=== PATIENT | male | born 2000 | race Caucasian/White ===

== ENCOUNTER 2018-06-02 10:23 | Emergency (ER) | payer OTHER, SELFPAY ==
[2018-06-02 12:26] LABS: Absolute Lymphocytes (CBC) 2.2 K/uL (0.7-4.9); Absolute Monocytes 0.4 K/uL (0.1-1.3); Absolute Neutrophil 3.4 K/uL (1.8-8.0); Basophils % 0.5 % (0-1.3); Eosinophils % 3.4 % (0-4.4); Hematocrit 45.1 % (39.6-49.0); Lymphocytes % 35.5 % (15.3-44.8); MCV 94.3 fL (80-100); MPV 7.7 fL (7.6-11.3); Monocytes % 6.7 % (3.3-12.3); RBC Red Blood Cell Count 4.79 M/uL (4.33-5.43)
--- NOTE | 2018-06-02 12:26 | EDPHYS ---
Physician Documentation [facility] Name: Blaine Holbrook Age: 18 yrs Sex: Male : 2000 Arrival Date: 06/02/2018 Time: 10:29 Bed 4 Private MD: ED Physician Sean Maldonado HPI: 06/02 12:18 This 18 yrs old Male presents to ER via EMS with complaints of Heat Exposure. 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 He was noted to be hypertensive but otherwise stable and was sent to the ED for evaluation. Historical: - Allergies: 10:32 No Known Allergies; aj - Home Meds: 10:32 None [Active]; aj - PMHx: 10:32 None; aj - PSHx: 10:32 None; aj - Immunization history:: Adult Immunizations up to date. - Social history:: Smoking status: Patient/guardian denies using tobacco. - Ebola Screening: : Patient negative for fever greater than or equal to 101.5 degrees Fahrenheit, and additional compatible Ebola Virus Disease symptoms Patient denies exposure to infectious person Patient denies travel to an Ebola-affected area in the 21 days before illness onset No symptoms or risks identified at this time. ROS: 12:18 Constitutional: Negative for fever, chills, and weight loss, Eyes: Negative for injury, kdr pain, redness, and discharge, ENT: Negative for injury, pain, and discharge, Neck: Negative for injury, pain, and swelling, Cardiovascular: Negative for chest pain, palpitations, and edema, Respiratory: Negative for shortness of breath, cough, wheezing, and pleuritic chest pain, Abdomen/GI: Negative for abdominal pain, nausea, vomiting, diarrhea, and constipation, Back: Negative for injury and pain, : Negative for injury, bleeding, discharge, and swelling, MS/Extremity: Negative for injury and deformity, Skin: Negative for injury, rash, and discoloration, Psych: Negative for depression, anxiety, suicide ideation, homicidal ideation, and hallucinations, Allergy/Immunology: Negative for hives, rash, and allergies, Endocrine: Negative for neck swelling, polydipsia, polyuria, polyphagia, and marked weight changes, Hematologic/Lymphatic: Negative for swollen nodes, abnormal bleeding, and unusual bruising. 12:18 Neuro: Positive for dizziness, weakness. Exam: 12:18 Constitutional: This is a well developed, well nourished patient who is awake, alert, kdr and in no acute distress. Head/Face: Normocephalic, atraumatic. Eyes: Pupils equal round and reactive to light, extra-ocular motions intact. Lids and lashes normal. Conjunctiva and sclera are non-icteric and not injected. Cornea within normal limits. Periorbital areas with no swelling, redness, or edema. Neck: Trachea midline, no thyromegaly or masses palpated, and no cervical lymphadenopathy. Supple, full range of motion without nuchal rigidity, or vertebral point tenderness. No Meningismus. Chest/axilla: Normal chest wall appearance and motion. Nontender with no deformity. No lesions are appreciated. Cardiovascular: Regular rate and rhythm with a normal S1 and S2. No gallops, murmurs, or rubs. Normal PMI, no JVD. No pulse deficits. Respiratory: Lungs have equal breath sounds bilaterally, clear to auscultation and percussion. No rales, rhonchi or wheezes noted. No increased work of breathing, no retractions or nasal flaring. Abdomen/GI: Soft, non-tender, with normal bowel sounds. No distension or tympany. No guarding or rebound. No evidence of tenderness throughout. Back: No spinal tenderness. No costovertebral tenderness. Full range of motion. Skin: Warm, dry with normal turgor. Normal color with no rashes, no lesions, and no evidence of cellulitis. MS/ Extremity: Pulses equal, no cyanosis. Neurovascular intact. Full, normal range of motion. Neuro: Awake and alert, GCS 15, oriented to person, place, time, and situation. Cranial nerves II-XII grossly intact. Motor strength 5/5 in all extremities. Sensory grossly intact. Cerebellar exam normal. Normal gait. Psych: Awake, alert, with orientation to person, place and time. Behavior, mood, and affect are within normal limits. Vital Signs: 10:32 BP 147 / 100; Pulse 81; Resp 20; Temp 98.4; Pulse Ox 99% on R/A; Weight 99.79 kg; aj Height 6 ft. 1 in. (185.42 cm); 10:51 BP 146 / 88; Pulse 72; Resp 25 S; Pulse Ox 98% on R/A; ae1 13:13 BP 134 / 94; Pulse 64; Resp 18; Pulse Ox 100% on R/A; ae1 10:32 Body Mass Index 29.03 (99.79 kg, 185.42 cm) sandra MDM: 12:18 Data reviewed: vital signs, nurses notes, lab test result(s), radiologic studies. kdr Counseling: I had a detailed discussion with the patient and/or guardian regarding: the historical points, exam findings, and any diagnostic results supporting the discharge/admit diagnosis, lab results, radiology results, the need for outpatient follow up. 12:26 Patient medically screened. [facility] 06/02 10:50 Order name: CBC with Diff; Complete Time: 12:44 [facility] 06/02 10:50 Order name: Chem 7; Complete Time: 12:44 [facility] 06/02 11:35 Order name: EKG Electrocardiogram; Complete Time: 11:56 [facility] 06/02 12:12 Order name: Urine Dipstick--Ancillary (enter results) 06/02 12:12 Order name: Urine Dipstick-Ancillary [facility] 06/02 11:55 Order name: EKG - Nurse/Tech; Complete Time: 11:55 ae1 Administered Medications: 13:11 Drug: Potassium Chloride 20 mEq Route: PO; ae1 13:21 Follow up: Response: Medication administered at discharge. ae1 Disposition: 06/02/18 12:26 Discharged to Home. Impression: Weakness, High BLood pressure. - Condition is Stable. - Discharge Instructions: Fatigue, Hypertension, [id number], Weakness, [id number]. - Medication Reconciliation Form, Thank You Letter form. - Follow up: Private Physician; When: 2 - 3 days; Reason: If symptoms return, Further diagnostic work-up, Recheck today's complaints, Continuance of care, Re-evaluation by your physician. - Problem is new. - Symptoms are resolved. Signatures: Dispatcher [employer] EDMN Milly Vuong RN RN aj Rittger, Kevin, MD MD kdr Roszak, Josh, PA PA [id number] Stewart Auguste RN RN ae1 Corrections: (The following items were deleted from the chart) 13:22 12:26 06/02/2018 12:26 Discharged to Home. Impression: Weakness; High BLood pressure. ae1 Condition is Stable. Forms are Medication Reconciliation Form, Thank You Letter, Antibiotic Education, Prescription Opioid Use. Follow up: Private Physician; When: 2 - 3 days; Reason: If symptoms return, Further diagnostic work-up, Recheck today's complaints, Continuance of care, Re-evaluation by your physician. Problem is new. Symptoms are resolved. kdr
--- NOTE | 2018-06-02 12:26 | ER ---
Nurse's Notes [facility] Name: Blaine Holbrook Age: 18 yrs Sex: Male : 2000 Arrival Date: 06/02/2018 Time: 10:29 Bed 4 Private MD: Diagnosis: Weakness;High BLood pressure Presentation: 06/02 10:30 Presenting complaint: EMS states: Reported patient was working outside when he became aj over heated and dizzy with increased sweating. EMS report patient was slow to respond upon arrival. Patient walked in by EMS upon arrival. Transition of care: patient was not received from another setting of care. Onset of symptoms was June 02, 2018. Risk Assessment: Do you want to hurt yourself or someone else? Patient reports no desire to harm self or others. Initial Sepsis Screen: Does the patient meet any 2 criteria? No. Patient's initial sepsis screen is negative. Does the patient have a suspected source of infection? No. Patient's initial sepsis screen is negative. Care prior to arrival: None. 10:30 Method Of Arrival: EMS: [facility] 10:30 Acuity: CARLOS 3 aj Triage Assessment: 10:32 General: Appears in no apparent distress. comfortable, Behavior is calm, cooperative, aj appropriate for age. Pain: Denies pain. Neuro: Level of Consciousness is awake, alert, obeys commands, Oriented to person, place, time, situation, Appropriate for age. Cardiovascular: Denies chest pain, Capillary refill < 3 seconds in bilateral fingers Patient's skin is warm and dry. Respiratory: Airway is patent Respiratory effort is even, unlabored, Respiratory pattern is regular, symmetrical. GI: Reports nausea, vomiting. Derm: Skin is intact, is healthy with good turgor, Skin is pink, warm \T\ dry. normal. Historical: - Allergies: 10:32 No Known Allergies; aj - Home Meds: 10:32 None [Active]; aj - PMHx: 10:32 None; aj - PSHx: 10:32 None; aj - Immunization history:: Adult Immunizations up to date. - Social history:: Smoking status: Patient/guardian denies using tobacco. - Ebola Screening: : Patient negative for fever greater than or equal to 101.5 degrees Fahrenheit, and additional compatible Ebola Virus Disease symptoms Patient denies exposure to infectious person Patient denies travel to an Ebola-affected area in the 21 days before illness onset No symptoms or risks identified at this time. Screenin:20 Abuse screen: Denies threats or abuse. Nutritional screening: No deficits noted. ae1 Tuberculosis screening: No symptoms or risk factors identified. Fall Risk None identified. Assessment: 10:29 General: Appears in no apparent distress. comfortable, Behavior is calm, cooperative. ae1 Pain: Denies pain. Neuro: Level of Consciousness is awake, alert, obeys commands, Oriented to person, place, time, situation, Reports dizziness. Cardiovascular: Heart tones S1 S2 present Respiratory: Airway is patent Respiratory effort is even, unlabored, Respiratory pattern is regular, symmetrical, Breath sounds are clear bilaterally. GI: Reports vomiting. : No signs and/or symptoms were reported regarding the genitourinary system. EENT: No signs and/or symptoms were reported regarding the EENT system. Derm: Skin is diaphoretic, Skin is flushed. Musculoskeletal: No signs and/or symptoms reported regarding the musculoskeletal system. 10:57 Reassessment: No changes from previously documented assessment. Patient and/or family ae1 updated on plan of care and expected duration. Pain level reassessed. Urinal provided, patient encouraged to provide urine sample. Vital Signs: 10:32 BP 147 / 100; Pulse 81; Resp 20; Temp 98.4; Pulse Ox 99% on R/A; Weight 99.79 kg; aj Height 6 ft. 1 in. (185.42 cm); 10:51 BP 146 / 88; Pulse 72; Resp 25 S; Pulse Ox 98% on R/A; ae1 13:13 BP 134 / 94; Pulse 64; Resp 18; Pulse Ox 100% on R/A; ae1 10:32 Body Mass Index 29.03 (99.79 kg, 185.42 cm) aj ED Course: 10:29 Patient arrived in ED. aj 10:29 Stewart Auguste, YASMINE is Primary Nurse. ae1 10:30 Bed in low position. Call light in reach. Side rails up X2. potline monitor on. Pulse ae1 ox on. NIBP on. 10:32 Triage completed. aj 10:32 Arm band placed on left wrist. Patient placed in an exam room, on a stretcher, on aj cardiac exercise physiologist, on pulse oximetry. 10:33 Sean Maldonado MD is Attending Physician. kdr 10:43 Inserted saline lock: 20 gauge in right antecubital area, using aseptic technique. ag Blood collected. 10:46 EKG done, by technical sales representatives. reviewed by Sean Maldonado MD. at1 13:20 IV discontinued, intact, bleeding controlled, No redness/swelling at site. Pressure ae1 dressing applied. 13:21 No provider procedures requiring assistance completed. ae1 Administered Medications: 13:11 Drug: Potassium Chloride 20 mEq Route: PO; ae1 13:21 Follow up: Response: Medication administered at discharge. ae1 Outcome: 12:26 Discharge ordered by . kdr 13:21 Discharged to home ambulatory, with steady gait ae1 13:21 Condition: stable 13:21 Discharge instructions given to patient, Instructed on discharge instructions, follow up and referral plans. Demonstrated understanding of instructions. 13:22 Patient left the ED. ae1 Signatures: Milly Vuong, RN Sean Rolle MD MD kdr Milly tran, television presenter EKG Tat1 Yumi Alex Stewart Auguste, YASMINE RN ae1
[2018-06-02 12:28] LABS: BUN Blood Urea Nitrogen 12 mg/dL (7-18); Bicarbonate 29 mmol/L (21-32); Glucose Level 89 mg/dL (74-106); Potassium 3.4 mmol/L (3.5-5.1); Sodium Level 143 mmol/L (136-145)
[2018-06-02] MEDS ORDERED: POTASSIUM CL SA 10 MEQ TAB PO ONE (13:12)
[2018-06-02 13:23] LABS: Urine Blood NEGATIVE (NEG); Urine Glucose NEGATIVE (NEG); Urine Protein NEGATIVE (NEG)
[2018-06-02 13:28] VITALS: TEMP 98.4
[2018-06-02 13:30] VITALS: BP 134/94; O2SAT 100
--- NOTE | 2018-06-03 10:30 | EKG ---
Test Date: 2018-06-02 Test Time: 10:41:08 Gas Producer: JUAN JOSE MEASUREMENT RESULTS: Intervals: Rate: 74 MO: 148 QRSD: 102 QT: 344 QTc: 381 [place]: P: 15 MO: 148 QRS: 69 T: 23 INTERPRETIVE STATEMENTS: Normal sinus rhythm Nonspecific T wave abnormality Abnormal ECG No previous ECG available for comparison Electronically Signed On 06-03-18 10:27:27 CDT by Fran Walsh
== END 2018-06-02 13:22 | disposition home or self-care (01) ==
LOC: ER 10:23
DX: I10 Essential (primary) hypertension (principal); X30.XXXA Exposure to excessive natural heat, initial encounter; Y93.89 Activity, other specified; Y92.89 Other specified places as the place of occurrence of the external cause; Y99.8 Other external cause status
CPT/HCPCS: 36415; 80048; 81003; 85025; 93005; 99284

== ENCOUNTER 2025-08-16 11:10 | Emergency (ER) | payer SELFPAY ==
--- OUTSIDE RECORDS SUMMARY | 2025-08-16 11:13 | XMS REPORT | Continuity of Care Document ---
Author Name Unknown Address [address] [place] [address] [facility] [place] Address 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 Role Phone CRYSTAL NOGUEIRA Primary Care Physician UnavailCRYSTAL Frost Attending Clinician Unavailable Crystal Nogueira MD Attending Clinician [phone] Doctor Unassigned, [place] Attending Clinician U Crystal Cain MD Attending Clinician [phone] WILMA MCCARTHY Attending Clinician Unavailab WILMA Esposito Attending Clinician UnavailRichard Diaz PA-C Attending Clinician [phone] Lab, Adc Fam Pob I Attending Clinician Unavailab Teri Rizzo Attending Clinician [phone] TERI ACSTRO Attending Clinician Unavailable Payers Payer Name Policy Type Policy Number Effective Date Expirati on Date Source [facility] STATE [id number] 2025 00:00:00 [employer] II [id number] 2019 00:00:00 Problems Condition Name Condition Details Condition Category Status Onset Date Resolution Date Last Treatment Date Treating Clinician Comments Source Attention deficit hyperactiv ity disorder (ADHD), combined type Attention deficit hyperactiv ity disorder (ADHD), combined type Disease Active 07-26 00:00: 00 [facility] Does not have health insurance Does not have health insurance Disease Active 9-05 00:00: 00 [facility] Adjustment insomnia Adjustment insomnia Disease Active 05-11 00:00: 00 [facility] Anxiety, generalize d Anxiety, generalize d Disease Active 05-11 00:00: 00 [facility] Depression , major, recurrent, mild Depression , major, recurrent, mild Disease Active 05-11 00:00: 00 [facility] Essential hypertensi on Essential hypertensi on Disease Active 05-11 00:00: 00 [facility] Vapes nicotine containing substance Vapes nicotine containing substance Disease Active 05-11 00:00: 00 [facility] Attention deficit disorder (ADD) in adult Attention deficit disorder (ADD) in adult Disease Active 2016-11 00:00: 00 [facility] Allergies, Adverse Reactions, Alerts Allergy Name Allergy Type Status Severity Reaction(s) Onset Date Inactive Date Treating Clinician Comments Source NO KNOWN ALLERGIE S Drug Class Active [facility] Social History Social Habit Start Date Stop Date Quantity Comments Source History of tobacco use Snuff User [facility] Sexual orientation [facility] Exposure to SARS-CoV-2 (event) Yes [facility] Alcoholic beverage intake 2025-07-28 00:00:00 2025-07-28 00:00:00 Current non-drinker of alcohol (finding) [facility] History of Social function 2025-07-26 00:00:00 2025-07-26 00:00:00 [facility] Alcohol intake 2017-09-28 00:00:00 2017-09-28 00:00:00 [facility] Tobacco use and exposure 2017-09-28 00:00:00 2017-09-28 00:00:00 User of smokeless tobacco [facility] Sex assigned at 2000 00:00:00 2000 00:00:00 [facility] Smoking Status Start Date Stop Date Source Ex-smoker 2017-09-28 00:00:00 2017-09-28 00:00:00 [facility] Medications Ordered Medication Name Filled Medication Name Start Date Stop Date Current Medication? Ordering Clinician Indication Dosage Frequency Signature (SIG) Comments Components Source amphetamine -dextroamph etamine 5 mg 24 hr capsule 07-27 00:00: 00 Yes [id number] 5mg Take 1 capsule by mouth every morning. [facility] buPROPion SR 150 mg SR tablet 07-26 00:00: 00 Yes [id number] 150mg Take 1 tablet by mouth in the morning and 1 tablet in the evening. [facility] propranoloL 10 mg tablet 07-26 00:00: 00 Yes [id number] 10mg Take 1 tablet by mouth in the morning and 1 tablet in the evening. [facility] propranoloL 10 mg tablet 05-11 00:00: 00 07-26 00:00 :00 No [id number] 5mg Take 0.5 tablets by mouth in the morning and 0.5 tablets in the evening. [facility] buPROPion SR 150 mg SR tablet 05-11 00:00: 00 07-26 00:00 :00 No [id number] 150mg Take 1 tablet by mouth in the morning and 1 tablet in the evening. [facility] lisdexamfet amine (VYVANSE) 30 mg capsule 2016-11 00:00: 00 Yes [id number] 30mg Take 1 capsule by mouth every morning. [facility] Immunizations Ordered Immunization Name Filled Immunization Name Date Status Comments Source Flu Injectable MDCK Pres-Free (FLUCELVAX) 2025-07-26 00:00:00 Completed [facility] Twinrix (hep a/hep b) 2017-12-12 00:00:00 Completed [facility] Flu Injectable MDCK Quadrivalent 2017-12-12 00:00:00 Completed MMR 2017-12-12 00:00:00 Completed Meningococcal Polysaccharide (groups A, C, Y and W-135) conjugate vaccine (MCV4P) 2017-12-12 00:00:00 Completed IPV 2017-12-12 00:00:00 Completed TDAP 2017-12-12 00:00:00 Completed HPV 2010-12-18 00:00:00 Completed [facility] HPV 2010-12-18 00:00:00 Completed [facility] Influenza Virus Vaccine - Whole 2010-08-07 00:00:00 Completed [facility] HPV 2010-08-07 00:00:00 Completed [facility] Influenza Virus Vaccine - Whole 2010-08-07 00:00:00 Completed [facility] HPV 2010-08-07 00:00:00 Completed [facility] IPV Unknown Completed [facility] TDAP Unknown Completed [facility] Twinrix (hep a/hep b) Unknown Completed [facility] Flu Injectable MDCK Quadrivalent Unknown Completed [facility] MMR Unknown Completed [facility] Meningococcal Polysaccharide (groups A, C, Y and W-135) conjugate vaccine (MCV4P) Unknown Completed [facility] IPV Unknown Completed [facility] TDAP Unknown Completed [facility] Twinrix (hep a/hep b) Unknown Completed [facility] Flu Injectable MDCK Quadrivalent Unknown Completed [facility] MMR Unknown Completed [facility] Meningococcal Polysaccharide (groups A, C, Y and W-135) conjugate vaccine (MCV4P) Unknown Completed [facility] IPV Unknown Completed [facility] TDAP Unknown Completed [facility] Twinrix (hep a/hep b) Unknown Completed [facility] Flu Injectable MDCK Quadrivalent Unknown Completed [facility] MMR Unknown Completed [facility] Meningococcal Polysaccharide (groups A, C, Y and W-135) conjugate vaccine (MCV4P) Unknown Completed [facility] IPV Unknown Completed [facility] TDAP Unknown Completed [facility] Twinrix (hep a/hep b) Unknown Completed [facility] Flu Injectable MDCK Quadrivalent Unknown Completed [facility] MMR Unknown Completed [facility] Meningococcal Polysaccharide (groups A, C, Y and W-135) conjugate vaccine (MCV4P) Unknown Completed [facility] IPV Unknown Completed [facility] TDAP Unknown Completed [facility] Twinrix (hep a/hep b) Unknown Completed [facility] Flu Injectable MDCK Quadrivalent Unknown Completed [facility] MMR Unknown Completed [facility] Meningococcal Polysaccharide (groups A, C, Y and W-135) conjugate vaccine (MCV4P) Unknown Completed [facility] Vital Signs Vital Name Observation Time Observation Value Comments S ource Systolic blood pressure 2025-07-26 14:25:00 151 mm[Hg] [facility] Diastolic blood pressure 2025-07-26 14:25:00 93 mm[Hg] [facility] Heart rate 2025-07-26 14:24:00 92 /min [facility] Body temperature 2025-07-26 14:24:00 36.22 Bryanna [facility] Body height 2025-07-26 14:24:00 188 cm [facility] Body weight 2025-07-26 14:24:00 119.296 kg [facility] BMI 2025-07-26 14:24:00 33.77 kg/m2 [facility] Oxygen saturation in Arterial blood by Pulse oximetry 2025-07-26 14:24:00 97 /min [facility] Systolic blood pressure 2024-05-11 14:35:00 143 mm[Hg] [facility] Diastolic blood pressure 2024-05-11 14:35:00 83 mm[Hg] [facility] Heart rate 2024-05-11 14:35:00 98 /min [facility] Body temperature 2024-05-11 14:35:00 37 Bryanna [facility] Respiratory rate 2024-05-11 14:35:00 17 /min [facility] Body height 2024-05-11 14:35:00 188 cm [facility] Body weight 2024-05-11 14:35:00 121.473 kg [facility] BMI 2024-05-11 14:35:00 34.38 kg/m2 [facility] Oxygen saturation in Arterial blood by Pulse oximetry 2024-05-11 14:35:00 98 /min [facility] Procedures Procedure Date / Time Performed Performing Clinicia n Source FLU VACC ([id number]), 6 MO-64 YRS, .5ML, IM, TIV (FLUCELVAX) 2025-07-26 15:09:29 Crystal Nogueira [facility] Encounters Start Date/Time End Date/Time Encounter Type Admission Type Attending [facility] Facility Care Department Encounter ID Source 2025-07-26 10:00:00 2025-07-26 10:39:34 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 [facility] [id number] 350.1.13.10 [id number] [id number] [facility] 2025-07-26 09:40:00 2025-07-26 10:24:56 Office Visit Crystal Farmer [facility] [id number] 350.1.13.10 [id number] [id number] [facility] 2025-05-31 00:00:00 2025-05-31 13:48:23 Telephone FalguniCrystal ernandez [facility] [id number] [id number] [id number] [id number] [facility] 2024-08-24 10:40:00 2024-08-24 10:40:00 Outpatient R CRYSTAL NOGUEIRA [facility] [id number] [facility] 2024-05-23 00:00:00 2024-06-23 18:18:57 Patient Secure Msg Doctor Unassigned, [place] [facility] [id number] 350.1.13.10 4.2.7.2.686 [id number] [facility] 2024-05-23 00:00:00 2024-06-23 18:18:24 Patient Secure Msg Doctor Unassigned, [place] [facility] [id number] 350.1.13.10 4.2.7.2.686 [id number] [facility] 2024-06-21 00:00:00 2024-06-21 14:00:21 Telephone [place], Peter [facility] 1..840.114 350.1.13.10 4.2.7.2.686 [id number] [facility] 2024-06-19 00:00:00 2024-06-20 09:51:22 Telephone Crystal Nogueira [facility] [id number] 350.1.13.10 4.2.7.2.686 [id number] [facility] 2024-05-16 10:00:00 2024-05-16 10:00:00 Outpatient R WILMA MCCARTHY [facility] [id number] [facility] 2024-05-11 09:20:00 2024-05-11 10:44:47 Outpatient R FALGUNIAUSTINZEKERAI [facility] [id number] [facility] 2024-05-11 09:20:00 2024-05-11 10:44:47 Office Visit Mirlande [facility] [id number] 350.1.13.10 [id number] [id number] [facility] 2020-06-04 14:00:00 2020-06-04 14:00:00 Outpatient R [facility] [id number] [facility] 2020-05-21 00:00:00 2020-05-21 00:00:00 Telephone Richard Wilkinson [facility] [id number] 350.1.13.10 [id number] [id number] [facility] 2020-05-20 14:57:14 2020-05-20 15:17:14 Laboratory Only Lab, Adc Fam Rickb Teri Wade [facility] [address] 1..840.114 350.1.13.10 [id number] [id number] [facility] 2020-05-20 14:40:00 2020-05-20 14:40:00 Outpatient Reina TERI CASTRO [facility] [id number] [facility] Notes Date/Time Note Provider Source 2025-07-26 10:00:00 Images from the original note were not included. Venipuncture collection performed by clean technique on the left anticubitus. Total of 1 attempts were made. Slight pressure and a bandage/dressing were applied to the site(s). The patient experienced no complications. The following specimens were processed according to instructions and sent to [facility] laboratories per lab order on 07/26/2025: LT BLUE SST 3 RED LAV 2 PPT DK GREEN (LiHep) DK GREEN (SodH) ROLLINS DK BLUE (K2) DK BLUE (S) ACD Blood Culture NIPT/NTD Patient has been identified by and name and was provided with cup, antiseptic towelette, and clean catch instructions. 1 urine specimen(s) sent. Unpreserved 1 Urine Culture Aptima tube Other urine T [facility] 2025-05-31 13:46:59 LVM to inform pt unfortunately Dr Nogueira next available appointment in clinic will be in July, pt can be added to wait list for any cancellations. Bonny Lawson [facility] 2025-05-31 13:17:10 Copied from COUNTS INCLUDE 234 BEDS AT THE [facility] #[id number]. Topic: Appointment - Schedule Appointment >> May 31, 2025 1:[address] Administrator wrote: Patient Rohini Isabel called to schedule appt for a follow up visit from last seen on 05/11/24 and did make a appointment but it is in July but wants to see if he can come in sooner to discuss the last office visit for adhd. Nidia Anna [facility] 2024-06-21 13:59:38 Spoke with patient and informed he needs to complete lab before having medication sent to pharmacy. Patient verbally understood and will get labs done. Milly Sparks MA [facility] 2024-06-21 13:49:23 Rohini Isabel is a 24 year old male is returning missed call to clinic Nayely Millard [facility] 2024-06-21 13:42:23 Attempted to call patient, no answer, LVM to call back. Patient needs to get labs done before having medication sent to pharmacy. [facility] 2024-06-21 11:46:26 Rohini Isabel is a 24 year old male Patient calling in regards to last visit he had with his provider and states ADHD medication was never called in to pharmacy, Pt reports general ADDERALL XR 15 mg was supposed to be sent. Please advise and follow up with Pt [phone] (home) [facility]/pharmacy #[id number] [place], [place] - [facility] [address] [facility] Paula Menezes [facility] 2024-06-19 14:20:52 Images from the original note were not included. Test results received Desecuritrex placed in Dr. Torres. Emma Lu [facility]
--- NOTE | 2025-08-16 12:37 | ER ---
Nurse's Notes [facility] Name: Blaine Holbrook Age: 25 yrs Sex: Male : 2000 Arrival Date: 08/16/2025 Time: 11:10 Bed 17 Private MD: Diagnosis: Impacted cerumen, bilateral Presentation: 08/16 11:19 Chief complaint: Patient states: BILATERAL EAR PRESSURE. STATES WORE EAR PLUGS LAST db WEEK AND NOW HAS INCREASED PRESSURE IN EARS AND DIFFICULTY HEARING. STATES CONCERNED FOR EAR INFX. Coronavirus screen: Client denies travel out of the [place] in the last 14 days. At this time, the client does not indicate any symptoms associated with coronavirus-19. Ebola Screen: Patient negative for fever greater than or equal to 101.5 degrees Fahrenheit, and additional compatible Ebola Virus Disease symptoms Patient denies exposure to infectious person. Patient denies travel to an Ebola-affected area in the 21 days before illness onset. No symptoms or risks identified at this time. Initial Sepsis Screen: Does the patient meet any 2 criteria? No. Patient's initial sepsis screen is negative. Does the patient have a suspected source of infection? No. Patient's initial sepsis screen is negative. Risk Assessment: Do you want to hurt yourself or someone else? Patient reports no desire to harm self or others. Onset of symptoms was August 16, 2025. 11:19 Method Of Arrival: Ambulatory db 11:19 Acuity: CARLOS 4 db Triage Assessment: 11:21 General: Appears in no apparent distress. comfortable, Behavior is calm, cooperative. db Pain: Complains of pain in right ear. EENT: Reports decreased hearing in right ear and left ear. Neuro: Level of Consciousness is awake, alert, obeys commands, Oriented to person, place, time, situation. Respiratory: Airway is patent Respiratory effort is even, unlabored, Respiratory pattern is regular, symmetrical. Historical: - Allergies: 11:23 No Known Allergies; db - Home Meds: 11:23 Propranolol Oral [Active]; db - PMHx: 11:21 Hypertensive disorder; db - Immunization history:: Adult Immunizations unknown. - Infectious Disease History:: Denies. - Social history:: Smoking status: Reported history of juuling and/or vaping. Screenin:46 [facility] ED Fall Risk Assessment (Adult) History of falling in the last 3 months, iw including since admission No falls in past 3 months (0 pts) Confusion or Disorientation No (0 pts) Intoxicated or Sedated No (0 pts) Impaired Gait No (0 pts) Mobility Assist Device Used No (0 pt) Altered Elimination No (0 pt) Score/Fall Risk Level 0 - 2 = Low Risk Oriented to surroundings, Maintained a safe environment. Abuse screen: Denies threats or abuse. Nutritional screening: No deficits noted. Tuberculosis screening: No symptoms or risk factors identified. Assessment: 12:46 Reassessment: Patient appears in no apparent distress at this time. Patient and/or iw family updated on plan of care and expected duration. Pain level reassessed. Patient is alert, oriented x 3, equal unlabored respirations, skin warm/dry/pink. Vital Signs: 11:19 BP 158 / 100; Pulse 69; Resp 18; Temp 98.2; Pulse Ox 98% ; Weight 117.93 kg; Height 6 db ft. 2 in. ; 11:19 Body Mass Index 33.38 (117.93 kg, 187.96 cm) db ED Course: 11:13 Patient arrived in ED. mr 11:16 Rachelle Paul PA-C is PHCP. sb4 11:16 Darek Pressley MD is Attending Physician. sb4 11:21 Triage completed. db 11:21 Arm band placed on Patient placed in waiting room. db 11:59 Mele Candelaria, RN is Primary Nurse. bp 12:37 Ashia Rubin MD is Referral Physician. sb4 12:46 Patient has correct armband on for positive identification. Provided Education on: . iw 12:46 No provider procedures requiring assistance completed. Patient did not have IV access iw during this emergency room visit. Administered Medications: No medications were administered Medication: 12:47 VIS not applicable for this client. iw Outcome: 12:37 Discharge ordered by MD. sb4 12:46 Discharged to home ambulatory, iw 12:46 Condition: good 12:46 Discharge instructions given to patient, Instructed on discharge instructions, follow up and referral plans. medication usage, Demonstrated understanding of instructions, follow-up care, medications, Prescriptions given X 1, 12:47 Patient left the ED. iw Signatures: Echo Bernal, Reg Reg mr Jojo Lu RN RN iw Mele Candelaria RN Geovanna Kay RN RN Rachelle Smith, PAGlenC PAGlenC sb4 Corrections: (The following items were deleted from the chart) 11: Arm band placed on Patient placed in an exam room, db db : Allergies: No Known Allergies; db db : Allergies: Propranolol; db db
--- NOTE | 2025-08-16 12:37 | EDPHYS ---
Physician Documentation [facility] Name: Blaine Holbrook Age: 25 yrs Sex: Male : 2000 Arrival Date: 08/16/2025 Time: 11:10 Bed 17 Private MD: ED Physician Darek Pressley HPI: 08/16 12:56 This 25 yrs old Male presents to ER via Ambulatory with complaints of Ear Pain. sb4 12:56 Patient reports bilateral ear pressure and decreased hearing for a little over a week sb4 now. He states this all started after he wore earplugs at work. No ear drainage. No fever or chills. Denies pain. Historical: - Allergies: 11:23 No Known Allergies; db - Home Meds: 11:23 Propranolol Oral [Active]; db - PMHx: 11:21 Hypertensive disorder; db - Immunization history:: Adult Immunizations unknown. - Infectious Disease History:: Denies. - Social history:: Smoking status: Reported history of juuling and/or vaping. ROS: 12:56 Constitutional: Negative for fever, chills, and weight loss, sb4 12:56 ENT: Positive for per HPI, 12:56 All other systems are negative, Exam: 12:56 Constitutional: This is a well developed, well nourished patient who is awake, alert, sb4 and in no acute distress. Head/Face: Normocephalic, atraumatic. Eyes: Extra-ocular motions intact. Periorbital areas with no swelling, redness, or edema. Respiratory: No increased work of breathing, no retractions or nasal flaring. Skin: Warm, dry with normal turgor. Normal color with no rashes, no lesions, and no evidence of cellulitis. 12:56 ENT: Ear canal(s): are normal, no acute changes, TM's: not visable, because of cerumen, Vital Signs: 11:19 BP 158 / 100; Pulse 69; Resp 18; Temp 98.2; Pulse Ox 98% ; Weight 117.93 kg; Height 6 db ft. 2 in. ; 11:19 Body Mass Index 33.38 (117.93 kg, 187.96 cm) db Procedures: 12:42 Performed bilateral cerumen removal with ear curette, saline irrigation, and hydrogen sb4 peroxide. Removed a moderate amount of wax. Patient tolerated well. MDM: 11:21 Medical Screening Exam initiated sb4 12:57 Differential diagnosis: otitis media, otitis externa, acute otalgia, cerumen impaction. sb4 Data reviewed: vital signs, nurses notes, and as a result, I will discharge patient. Counseling: I had a detailed discussion with the patient and/or guardian regarding the historical points, exam findings, and any diagnostic results supporting the discharge/admit diagnosis, the presence of at least one elevated blood pressure reading (>120/80) during this emergency department visit, the need for outpatient follow up, for definitive care, to return to the emergency department if symptoms worsen or persist or if there are any questions or concerns that arise at home. Administered Medications: No medications were administered Disposition Summary: 08/16/25 12:37 Discharge Ordered Notes: Location: Home sb4 Problem: new sb4 Symptoms: have improved sb4 Condition: Stable sb4 Diagnosis - Impacted cerumen, bilateral sb4 Followup: sb4 - With: Ashia Rubin MD - When: As needed - Reason: Recheck today's complaints, Re-evaluation by your physician Discharge Instructions: - Discharge Summary Sheet sb4 - Earwax Buildup, Adult sb4 - Ear Drops, Adult sb4 - Ear Irrigation sb4 Forms: - Antibiotic Education sb4 - Patient Portal Instructions sb4 - Leadership Thank You Letter sb4 Prescriptions: - ofloxacin 0.3 % Otic drops - instill 5 drop OTIC route every 12 hours; 1 Applicator; Refills: 0, Product sb4 Selection Permitted Signatures: Geovanna Roblero RN RN Rachelle Smith PA-C PA-C sb4 Corrections: (The following items were deleted from the chart) 11:25 11:21 Allergies: No Known Allergies; db db 11:25 11:23 Allergies: Propranolol; db db 12:57 12:56 Patient reports bilateral ear pressure and decreased hearing for a little over a sb4 week now. He states this all started after he wore earplugs at work. No ear drainage. No fever or chills. sb4
[2025-08-16 13:02] VITALS: BP 158/100; TEMP 98.2; O2SAT 98
== END 2025-08-16 12:47 | disposition home or self-care (01) ==
LOC: ER 11:10
DX: H61.23 Impacted cerumen, bilateral (principal)
CPT/HCPCS: 99283